=== PATIENT | female | born 1975 | race Caucasian/White ===

== ENCOUNTER 2019-01-25 13:24 | Day surgery (SDC) | payer OTHER ==
[~2019-01-25] VITALS: Ht 170.2 cm; Wt 117.0 kg
[~2019-01-25 13:24] MED LIST: ACET325 PO; ALBU90OI INH; AMLO10 PO; ASCO500 PO; BELPTAB PO; BENTYL20 MG PO; BP MEDS; BUPR100 PO; CITA20 PO; Cleocin HCl300 MG PO; DEXT30SU PO; DIAZ2 PO; ESCI20; ESTR2 PO; FAMO20 PO; FERR325 PO; FURO40 PO; GABA100 PO; GLIM2 PO; GLUCOPHAGE; GUAI600T33 PO; HYDACE10B PO; HYDACE5 PO; HYDR1TAB94 PO; Humalog100 UNIT/1; Humalog100 UNIT/1 SQ; IBUP800 PO; INSDET100 SC; LEVO750 PO; LOSA50 PO; MAGCIT300 PO; METF500 PO; METF500C PO; METF850; Norco 5-325 Ta1 EACH PO; OMEP40CA12 PO; OXYACE5T PO; Omeprazole20 M1 PO; POTA10T PO; PROM25 PO; Paxil20 MG PO; SITA100T2 PO; SULTRIDS PO; Super B Comple150 MG; Super B Comple150 MG PO; VITAMIN D32000 UNI1 PO; VITAMIN D32000 UNIT PO; Wellbutrin Sr200 MG; Zofran Odt4 MG SL; [UNRECOGNIZED DRUG - REMARK]
[2019-01-25] MEDS ORDERED: LIRA0.6P (13:59)
== END 2019-01-25 15:15 | disposition home or self-care (01) ==
LOC: ORSCSDS 13:24
PROVIDERS: Internal Medicine Gastroenterology
PROC: 0D758ZZ Dilation of Esophagus, Via Natural or Artificial Opening Endoscopic (ICD-10-PCS; 2019-01-25)
PROC: 0DB68ZX Excision of Stomach, Via Natural or Artificial Opening Endoscopic, Diagnostic (ICD-10-PCS; principal; 2019-01-25 14:45)
DX: R11.0 Nausea (principal); K44.9 Diaphragmatic hernia without obstruction or gangrene; K29.00 Acute gastritis without bleeding; R13.10 Dysphagia, unspecified; I10 Essential (primary) hypertension; E88.81 Metabolic syndrome and other insulin resistance; E11.9 Type 2 diabetes mellitus without complications; F41.8 Other specified anxiety disorders; F43.10 Post-traumatic stress disorder, unspecified; E66.01 Morbid (severe) obesity due to excess calories; Z68.41 Body mass index [BMI] 40.0-44.9, adult; Z79.4 Long term (current) use of insulin; Z79.899 Other long term (current) drug therapy
CPT/HCPCS: 82947; 88305; 88342; J2704; J7120

== ENCOUNTER 2020-11-02 11:33 | Day surgery (SDC) | payer MEDICARE, OTHER ==
[~2020-11-02] VITALS: Ht 172.7 cm; Wt 112.4 kg
[~2020-11-02 11:33] MED LIST changes: +BASAGLAR K100 UNIT/1; +Budeprion Xl300 MG PO; +ESCI20 PO; +LIRA0.6P; +METO25ER PO; +PANT40 PO; +VICTOZA 3-0.6 MG/0.2 SC
--- NOTE | 2020-11-02 12:21 | NUR ---
11/02/20 1221 ELLIS SHIRLEY 18G IV INSERTED INTO R HAND FOR URIEL BLOCK USE. IV HAD BLOOD RETURN AND FLUSHED 5ML NS POST BLOOD RETURN. PT TOLERATED WELL.
--- NOTE | 2020-11-02 13:50 | NUR ---
11/02/20 1350 Fadia Hoang PATIENT BEGAN C/O PAIN SOON SHE TRANSFERRED TO THE CHAIR. WHILE SHE WAS IN BED SHE STATED NO PAIN AND NO PROBLEMS. IV WAS DC'D AT THAT TIME. WHEN SHE STARTED C/O OF PAIN THE DECISION WAS MADE TO GIVE ORAL PAIN MEDS. PATIENT RATED PAIN 9/10 AND STATED IT WAS THROBBING PAIN. DR WADE CAME IN TO CHECK IN WITH PATIENT BEFORE HE LEFT AND HE ASSESSED HER PAIN AND MOVEMENT AND STATED EVERYTHING LOOKED GOOD. PATIENT HAS HAD ELEVATED ON PILLOW, IS EATING COOKIES AND DRINKING JUICE
== END 2020-11-02 14:15 | disposition home or self-care (01) ==
LOC: ORSCSDS 11:33
PROVIDERS: Orthopaedic Surgery
PROC: 01N50ZZ Release Median Nerve, Open Approach (ICD-10-PCS; principal; 2020-11-02 12:45)
DX: G56.01 Carpal tunnel syndrome, right upper limb (principal); I10 Essential (primary) hypertension; E11.9 Type 2 diabetes mellitus without complications; K21.9 Gastro-esophageal reflux disease without esophagitis; E66.01 Morbid (severe) obesity due to excess calories; Z68.37 Body mass index [BMI] 37.0-37.9, adult; Z79.4 Long term (current) use of insulin; Z79.899 Other long term (current) drug therapy
CPT/HCPCS: 82947; A9270; J0690; J2250; J2704; J3010; J7120

== ENCOUNTER 2021-02-12 10:25 | Day surgery (SDC) | payer MEDICARE, OTHER ==
[~2021-02-12] VITALS: Ht 172.7 cm; Wt 108.8 kg
== END 2021-02-12 11:51 | disposition home or self-care (01) ==
LOC: ORSCSDS 10:25
PROVIDERS: Internal Medicine Gastroenterology
PROC: 0DB58ZX Excision of Esophagus, Via Natural or Artificial Opening Endoscopic, Diagnostic (ICD-10-PCS; principal; 2021-02-12 11:45)
PROC: 0DB68ZX Excision of Stomach, Via Natural or Artificial Opening Endoscopic, Diagnostic (ICD-10-PCS; principal; 2021-02-12 11:45)
PROC: 0D758ZZ Dilation of Esophagus, Via Natural or Artificial Opening Endoscopic (ICD-10-PCS; principal; 2021-02-12 11:45)
PROC: 0DB98ZX Excision of Duodenum, Via Natural or Artificial Opening Endoscopic, Diagnostic (ICD-10-PCS; principal; 2021-02-12 11:45)
DX: R13.10 Dysphagia, unspecified (principal); R11.2 Nausea with vomiting, unspecified; I10 Essential (primary) hypertension; K21.9 Gastro-esophageal reflux disease without esophagitis; E11.9 Type 2 diabetes mellitus without complications; E66.9 Obesity, unspecified; Z68.37 Body mass index [BMI] 37.0-37.9, adult; E66.01 Morbid (severe) obesity due to excess calories; Z79.4 Long term (current) use of insulin; Z79.899 Other long term (current) drug therapy
CPT/HCPCS: 82947; J2704; J7120

== ENCOUNTER 2021-02-15 10:06 | Day surgery (SDC) | payer MEDICARE, OTHER ==
[~2021-02-15] VITALS: Ht 203.2 cm; Wt 112.2 kg
== END 2021-02-15 13:35 | disposition home or self-care (01) ==
LOC: ORSCSDS 10:06
PROVIDERS: Orthopaedic Surgery
PROC: 01N50ZZ Release Median Nerve, Open Approach (ICD-10-PCS; principal; 2021-02-15 11:45)
DX: G56.02 Carpal tunnel syndrome, left upper limb (principal); K21.9 Gastro-esophageal reflux disease without esophagitis; E11.9 Type 2 diabetes mellitus without complications; F32.A Depression, unspecified; E66.9 Obesity, unspecified; Z68.37 Body mass index [BMI] 37.0-37.9, adult; R56.9 Unspecified convulsions; Z79.899 Other long term (current) drug therapy
CPT/HCPCS: 82947; J0690; J2250; J2704; J3010; J7120

== ENCOUNTER → 2023-08-06 | Outpatient (CLI) | payer MEDICARE, OTHER ==
[2023-08-07 12:27] LABS: Bacterial Vaginosis PCR Positive (NEGATIVE); Candida Group, PCR NOT DETECTED (NOT DETECT); Candida glabrata-krusei, PCR DETECTED (NOT DETECT)
== END | disposition home or self-care (01) ==
LOC: LAB SHORT 19:01 → LAB 19:01
PROVIDERS: Family Medicine
DX: B37.31 Acute candidiasis of vulva and vagina (principal)
CPT/HCPCS: 87481; 87661; 87801

== ENCOUNTER 2023-11-13 14:51 | Emergency (ER) | payer MEDICARE, OTHER ==
[~2023-11-13] VITALS: Ht 172.7 cm; Wt 108.9 kg
[2023-11-13 17:55] VITALS: BP 118/79
== END 2023-11-13 17:59 | disposition home or self-care (01) ==
LOC: ER 14:51
DX: S93.401A Sprain of unspecified ligament of right ankle, initial encounter (principal); X50.1XXA Overexertion from prolonged static or awkward postures, initial encounter; Z88.8 Allergy status to other drugs, medicaments and biological substances; Z79.899 Other long term (current) drug therapy; Z79.84 Long term (current) use of oral hypoglycemic drugs; Z79.4 Long term (current) use of insulin; I10 Essential (primary) hypertension; E11.40 Type 2 diabetes mellitus with diabetic neuropathy, unspecified
CPT/HCPCS: 73610; 73630; 99283-25

== ENCOUNTER 2024-03-30 10:57 | Day surgery (SDC) | payer MEDICARE ==
[~2024-03-30] VITALS: Ht 172.7 cm; Wt 106.1 kg
[~2024-03-30 10:57] MED LIST changes: +Lactated Ringer's 1,000 ML IV ONE
[2024-03-30] MEDS ORDERED: propofoL 40 ML IV ONE ×2 (11:33→14:09)
[2024-03-30] MEDS ORDERED: ATORVASTATIN CA20 MG (11:59)
[2024-03-30] MEDS ORDERED: METOPROLOL SUCC25 MG (11:59)
[2024-03-30] MEDS ORDERED: ESCI10 (12:00)
[2024-03-30] MEDS ORDERED: SPIRONOLACTONE50 MG (12:00)
[2024-03-30] MEDS ORDERED: Diflucan100 MG (12:01)
[2024-03-30] MEDS ORDERED: LOSA25 (12:02)
[2024-03-30] MEDS ORDERED: Lactated Ringer's 1,000 ML IV ONE (12:28)
[2024-03-30 14:24] VITALS: BP 129/76
== END 2024-03-30 14:41 | disposition home or self-care (01) ==
LOC: ORSCSDS 10:57
PROVIDERS: Specialist
PROC: 0DB68ZX Excision of Stomach, Via Natural or Artificial Opening Endoscopic, Diagnostic (ICD-10-PCS; principal; 2024-03-30 12:15)
PROC: 0DB58ZX Excision of Esophagus, Via Natural or Artificial Opening Endoscopic, Diagnostic (ICD-10-PCS; principal; 2024-03-30 12:15)
PROC: 0DJD8ZZ Inspection of Lower Intestinal Tract, Via Natural or Artificial Opening Endoscopic (ICD-10-PCS; 2024-03-30 12:15)
DX: Z12.11 Encounter for screening for malignant neoplasm of colon (principal); R10.10 Upper abdominal pain, unspecified; K21.9 Gastro-esophageal reflux disease without esophagitis; Z83.719 Family history of colon polyps, unspecified; K64.8 Other hemorrhoids; I10 Essential (primary) hypertension; K44.9 Diaphragmatic hernia without obstruction or gangrene; E11.9 Type 2 diabetes mellitus without complications; L53.9 Erythematous condition, unspecified; E66.9 Obesity, unspecified; Z68.35 Body mass index [BMI] 35.0-35.9, adult; Z79.85 Long-term (current) use of injectable non-insulin antidiabetic drugs; Z79.84 Long term (current) use of oral hypoglycemic drugs; Z79.899 Other long term (current) drug therapy
CPT/HCPCS: 43239; G0105; 82947; 88305; 88342; J2704; J7120

== ENCOUNTER → 2025-01-28 | Outpatient (CLI) | payer MEDICARE ==
[~2025-01-28] MED LIST changes: +ATORVASTATIN CA20 MG; +Diflucan100 MG; +ESCI10; +LOSA25; -Lactated Ringer's 1,000 ML IV ONE; +METOPROLOL SUCC25 MG; +SPIRONOLACTONE50 MG
== END ==
LOC: LAB SHORT 11:57 → LAB 11:57
DX: N39.0 Urinary tract infection, site not specified (principal)
CPT/HCPCS: 87077; 87086; 87186